=== PATIENT | female | born 1995 ===

== ENCOUNTER 2018-07-26 23:33 | Outpatient (CLI) | payer SELFPAY ==
[~2018-07-26] VITALS: Ht 154.9 cm; Wt 68.6 kg
[2018-07-26 23:48] VITALS: BP 110/50
[2018-07-27 00:06] LABS: AMPHETAMINE SCREEN, URINE Negative (Negative); BARBITURATE SCREEN, URINE Negative (Negative); BENZODIAZEPINE SCREEN, URINE Negative (Negative); CANNABINOID SCREEN, URINE Negative (Negative); COCAINE SCREEN, URINE Negative (Negative); METHADONE SCREEN, URINE Negative (Negative); OPIATE SCREEN, URINE Negative (Negative)
[2018-07-27 00:17] LABS: MICROSCOPIC INDICATED
[2018-07-27] MEDS ORDERED: NITROFURANTOIN (MACROBID) 100 MG CAPSULE ONE (00:46)
[2018-07-27] MEDS ORDERED: NITR100C56 PO (01:39)
[2018-07-27] MEDS ORDERED: NITROFURANTOIN (MACROBID) 100 MG CAPSULE PO ONE (09:00)
[2018-07-27] MEDS ORDERED: NITROFURANTOIN (MACROBID) 100 MG CAPSULE PO SCH (09:00)
== END 2018-07-27 02:01 | disposition home or self-care (01) ==
LOC: LDOP 23:33
PROVIDERS: ATTEND Obstetrics & Gynecology
DX: O42.92 Full-term premature rupture of membranes, unspecified as to length of time between rupture and onset of labor (principal); Z3A.37 37 weeks gestation of pregnancy
CPT/HCPCS: 59025; 76815; 76819; 80307; 81001; 87086; 99201; G0463

== ENCOUNTER 2018-08-02 04:05 | Outpatient (CLI) | payer MEDICAID ==
[~2018-08-02] VITALS: Ht 162.6 cm; Wt 68.0 kg
[~2018-08-02 04:05] MED LIST: NITR100C56 PO
[2018-08-02 04:32] VITALS: BP 101/63
[2018-08-02 04:55] LABS: MICROSCOPIC INDICATED
[2018-08-02 05:07] LABS: AMPHETAMINE SCREEN, URINE Negative (Negative); BARBITURATE SCREEN, URINE Negative (Negative); BENZODIAZEPINE SCREEN, URINE Negative (Negative); CANNABINOID SCREEN, URINE Negative (Negative); COCAINE SCREEN, URINE Negative (Negative); METHADONE SCREEN, URINE Negative (Negative); OPIATE SCREEN, URINE Negative (Negative)
== END 2018-08-02 06:17 | disposition home or self-care (01) ==
LOC: LDOP 04:05
PROVIDERS: ATTEND Obstetrics & Gynecology
DX: O26.893 Other specified pregnancy related conditions, third trimester (principal); R10.9 Unspecified abdominal pain; R51 Headache; Z3A.38 38 weeks gestation of pregnancy
CPT/HCPCS: 59025; 80307; 81001; 87086; 99211; G0463

== ENCOUNTER 2018-08-04 17:37 | Outpatient (CLI) | payer MEDICAID ==
[~2018-08-04] VITALS: Ht 162.6 cm; Wt 68.0 kg
[2018-08-04 18:22] VITALS: BP 126/64
[2018-08-04 18:28] LABS: MICROSCOPIC INDICATED
[2018-08-04 18:36] LABS: AMPHETAMINE SCREEN, URINE Negative (Negative); BARBITURATE SCREEN, URINE Negative (Negative); BENZODIAZEPINE SCREEN, URINE Negative (Negative); CANNABINOID SCREEN, URINE Negative (Negative); COCAINE SCREEN, URINE Negative (Negative); METHADONE SCREEN, URINE Negative (Negative); OPIATE SCREEN, URINE Negative (Negative)
== END 2018-08-04 19:25 | disposition home or self-care (01) ==
LOC: LDOP 17:37
PROVIDERS: ATTEND Obstetrics & Gynecology
DX: O23.43 Unspecified infection of urinary tract in pregnancy, third trimester (principal); O26.893 Other specified pregnancy related conditions, third trimester; Z3A.38 38 weeks gestation of pregnancy
CPT/HCPCS: 59025; 80307; 81001; 99211; G0463